=== PATIENT | male | born 1955 | race Caucasian/White ===

== ENCOUNTER → 2016-10-09 | Outpatient (CLI) | payer BC ==
[~2016-10-09] MED LIST: ASPCH81X PO; ATOR-24 PO; CEPH500C2 PO; DILT-203 PO; HYDR-5688 PO; HYDR12.55 PO; HYDR25TA4 PO; IRBE1TAB50 PO
[2016-10-09 12:53] LABS: BASO % 0.9 %; BASO ABS # 0.05 K/uL (0-0.2); COMPLETE YES; EOS % 1.6 %; HEMATOCRIT 41.9 % (42-52); IG% 0.2 %; LYMPH ABS # 1.95 K/uL (1.2-3.4); MEAN CELL VOLUME 94.4 fL (80-100); MEAN CORPUSCULAR HEMOGLOBIN 33.3 pg (25-34); MEAN CORPUSCULAR HGB CONC 35.3 g/dl (32-36); MEAN PLATELET VOLUME 10.9 fL (7.4-10.4); MONO % 7.7 %; NEUT % 55.6 %; PLATELET COUNT 201 K/uL (130-400); RED BLOOD COUNT 4.44 M/uL (4.7-6.1); WHITE BLOOD COUNT 5.74 K/uL (4.8-10.8)
[2016-10-09 13:07] LABS: ALKALINE PHOSPHATASE 49 U/L (45-117); ALT/SGPT 73 U/L (12-78); AST/SGOT 46 U/L (15-37); BLOOD UREA NITROGEN 16 mg/dl (7-18); BUN/CREATININE RATIO 16.9 (10-20); CALCIUM 8.9 mg/dl (8.5-10.1); CARBON DIOXIDE 28 mmol/L (21-32); CHLORIDE 103 mmol/L (98-107); CREATININE 0.92 mg/dl (0.60-1.40); GLUCOSE 106 mg/dl (70-99); HDL CHOLESTEROL 31 mg/dl; POTASSIUM 4.2 mmol/L (3.5-5.1); SODIUM 140 mmol/L (136-145)
[2016-10-09 13:12] LABS: CHOLESTEROL 154 mg/dl (0-200); LDL CHOLESTEROL CALCULATED 74 mg/dl; TRIGLYCERIDES 244 mg/dl (0-150); VERY LOW DENSITY LIPOPROT CALC 49 mg/dl
[2016-10-09 13:17] LABS: ESTIMATED AVERAGE GLUCOSE 105 mg/dl; HA1C FLAG Normal (Normal)
== END | disposition home or self-care (01) ==
LOC: C.LABBFT 10:54
PROVIDERS: ATTEND Internal Medicine
DX: E78.5 Hyperlipidemia, unspecified (principal); E66.9 Obesity, unspecified; R74.8 Abnormal levels of other serum enzymes; Z11.59 Encounter for screening for other viral diseases; Z12.5 Encounter for screening for malignant neoplasm of prostate; R73.01 Impaired fasting glucose

== ENCOUNTER → 2016-12-21 | Outpatient (CLI) | payer BC ==
[~2016-12-21] MED LIST changes: -DILT-203 PO; +DILT240C56 PO
--- NOTE | 2016-12-21 14:37 | DIAGNOSTIC IMAGING REPORT ---
ABDOMINAL WALL ULTRASOUND CLINICAL HISTORY: K42.9 Umbilical [id number] COMPARISON STUDY: No previous studies for comparison. FINDINGS: There is an incompletely reducible fat-containing umbilical hernia with a neck measuring approximately 2 cm. IMPRESSION: Moderate fat-containing umbilical hernia with a neck measuring approximately 2 cm. Electronically signed by: Yung Maher M.D. 12/21/2016 2:36 PM Dictated Date/Time: 12/21/2016 2:33 PM
== END | disposition home or self-care (01) ==
LOC: C.ULTR 14:16
PROVIDERS: ATTEND Surgery
DX: K42.9 Umbilical hernia without obstruction or gangrene (principal)

== ENCOUNTER → 2017-05-15 | Day surgery (SDC) | payer BC ==
[2017-04-27 15:29] VITALS: Ht 172.7 cm; Wt 109.1 kg
[2017-05-10 16:50] LABS: BASO % 1.1 %; BASO ABS # 0.08 K/uL (0-0.2); COMPLETE YES; EOS % 2.8 %; HEMATOCRIT 47.2 % (42-52); IG% 0.3 %; LYMPH % 33.6 %; LYMPH ABS # 2.42 K/uL (1.2-3.4); MEAN CELL VOLUME 96.3 fL (80-100); MEAN CORPUSCULAR HEMOGLOBIN 31.6 pg (25-34); MEAN CORPUSCULAR HGB CONC 32.8 g/dl (32-36); MEAN PLATELET VOLUME 10.7 fL (7.4-10.4); MONO % 9.4 %; NEUT % 52.8 %; PLATELET COUNT 253 K/uL (130-400); WHITE BLOOD COUNT 7.21 K/uL (4.8-10.8)
[2017-05-10 17:05] LABS: BUN/CREATININE RATIO 15.8 (10-20); CREATININE 0.94 mg/dl (0.60-1.40); POTASSIUM 4.2 mmol/L (3.5-5.1)
[~2017-05-15] VITALS: Ht 172.7 cm; Wt 109.1 kg
[~2017-05-15] MED LIST changes: -ATOR-24 PO; +ATROPINE SULFATE 0.1 MG/ML 5ML SYR IV PRN; +BUPIVACAINE 0.5 % 5 MG/1 ML MPF 30ML VIAL ONE; +CEFAZOLIN 2000 MG/60 ML D5W IV SCH; +DEXAMETHASONE SOD INJ 4 MG/ML VIAL ONE; +DILT-203 PO; -DILT240C56 PO; +FENTANYL CITRATE INJ 50 MCG/1 ML 2 ML VIAL IV PRN; +FENTANYL CITRATE INJ 50 MCG/1 ML 2 ML VIAL ONE; -HYDR12.55 PO; +HYDROCODONE/ACETAMOPHEN 5/325MG TAB PO PRN; +KETOROLAC TROMETHAMINE 30 MG/ML VIAL IV. PRN; +LABETALOL HCL IV 5 MG/ML 20ML IV PRN; +LACTATED RINGER'S 1000ML 1,000 ML IV SCH; +LIDOCAINE HCL 2% 2 ML VIAL (20MG/ML) ONE; +MIDAZOLAM HCL 1 MG/ML 2ML VIAL ONE; +ONDANSETRON INJ 2 MG/ML 2 ML VIAL IV PRN; +ONDANSETRON INJ 2 MG/ML 2 ML VIAL ONE; +PROPOFOL IV EMULSION 10 MG/ML 20 ML VIAL IV ONE; +SODIUM CHLORIDE 0.9% 1000ML 1,000 ML IV SCH
--- NOTE | 2017-05-15 09:02 | History & Physical Bridge - SC ---
H&P Re-Evaluation Bridge Note: I have examined the patient, reviewed the History & Physical and in the interval since the performance of the History & Physical I have noted the following changes of clinical significance: No changes noted
--- NOTE | 2017-05-15 09:05 | Discharge Instructions-SurgCtr ---
Discharge Instructions Date of Service May 15, 2017. Visit Reason for Visit: Umbilical Hernia Discharge Discharge Diagnosis / Problem: umbilical hernia Discharge Goals Goal(s): Decrease discomfort, Improve function, Improve disease control Activity Recommendations Activity Limitations: as noted below Lifting Limitations: no more than 25 pounds Exercise/Sports Limitations: until after follow-up appointment May Resume Sexual Activity: when tolerated Shower/Bathe: tomorrow Driving or Machine Use: resume 1 day after discharge SPECIAL CARE INSTRUCTIONS: * Cover incisions and change daily for comfort/drainage. * * Avoid constipation- may use Senokot S and Milk of magnesia twice daily as directed on the package * May use ibuprofen for pain as tolerated. * Expect some swelling and bruising. Call your doctor if: * Temperature above 101 degrees * Pain not relieved by pain medicine ordered * There is increased drainage or redness from any incision * You have any unanswered questions or concerns [phone]. FOLLOW UP VISIT: If not already scheduled, please call the office for a follow-up visit. for next week- some suture removal OFFICE PHONE NUMBER: Dr. Garcia Office Anesthesia . Post Anesthesia Instructions: If you have had General Anesthesia or IV Sedation: * Do not drive today. * Resume driving when surgeon permits. * Do not make important decisions or sign legal documents today. * Call surgeon for: 1. Temperature elevations greater than 101 degrees F. 2. Uncontrollable pain. 3. Excessive bleeding. 4. Persistent nausea and vomiting. 5. Medication intolerance (nausea, vomiting or rash). * For nausea and vomiting use only clear liquids such as: tea, soda, bouillon until nausea subsides, then gradually increase diet as tolerated. * If you have any concerns or questions, call your surgeon's office. If physician is unavailable and it is an emergency, call 911 or go to the nearest emergency room. . Diet Recommendations Home Diet: resume previous diet Pending Studies Studies pending at discharge: no Medical Emergencies . Who to Call and When: Medical Emergencies: If at any time you feel your situation is an emergency, please call 911 immediately. . Non-Emergent Contact Non-Emergency issues call your: Primary Care Provider, Surgeon . . "Provider Documentation" section prepared by Blayne Garcia. .
--- NOTE | 2017-05-15 10:09 | [facility] Operative Report ---
Operative Report Operative Date May 15, 2017. Pre-Operative Diagnosis Umbilical Hernia Post-Operative Diagnosis same Procedure(s) Performed Umbilical Hernia Open Repair Surgeon Dr. Svetlana Garcia Pilling Machine Operator Surgeon(s) June Garrett PA-C Estimated Blood Loss 5CC Findings 2 cm defect Specimens A. Umbilical Hernia Contents Anesthesia gen/ LMA Complication(s) None Disposition Recovery Room / PACU I attest to the content of the Intraoperative Record and any orders documented therein. Any exceptions are noted below.
[2017-05-15 11:40] VITALS: BP 143/88; PULSE 67; TEMP 36.5; O2SAT 95
--- NOTE | 2017-05-15 11:41 | Anesthesia Progress Nt - [facility] ---
Anesthesia Post Op Note Date & Time May 15, 2017 at 11:41 Vital Signs Pain Intensity: 2.0 Vital Signs Past 12 Hours Date Time Temp Pulse Resp B/P (MAP) Pulse Ox O2 Delivery O2 Flow Rate FiO2 05/15/17 11:15 67 16 153/83 (106) 94 Room Air 05/15/17 10:52 69 05/15/17 10:52 69 93 05/15/17 10:51 70 13 93 05/15/17 10:51 69 13 05/15/17 10:50 127/83 05/15/17 10:49 69 16 95 05/15/17 10:49 69 16 05/15/17 10:48 36.9 71 20 117/83 96 Room Air 05/15/17 10:46 117/83 05/15/17 10:44 70 14 05/15/17 10:44 69 14 93 05/15/17 10:43 71 13 05/15/17 10:43 71 13 93 05/15/17 10:42 71 18 05/15/17 10:42 71 18 93 05/15/17 10:41 133/89 05/15/17 10:39 71 15 97 05/15/17 10:39 71 15 05/15/17 10:38 66 11 97 05/15/17 10:38 67 11 05/15/17 10:37 70 14 05/15/17 10:37 70 14 96 05/15/17 10:36 70 13 96 05/15/17 10:36 70 13 05/15/17 10:35 130/87 05/15/17 10:33 68 12 96 05/15/17 10:33 68 12 05/15/17 10:32 69 21 97 05/15/17 10:32 69 21 05/15/17 10:31 137/91 05/15/17 10:27 67 13 05/15/17 10:27 67 13 95 05/15/17 10:26 145/97 05/15/17 10:25 71 21 05/15/17 10:25 21 05/15/17 10:20 66 21 05/15/17 10:20 66 21 129/95 94 05/15/17 10:15 36.4 76 16 128/91 96 Mask 10 05/15/17 10:15 78 05/15/17 10:15 78 128/91 05/15/17 07:58 36.9 71 18 162/102 (122) 96 Room Air Notes Mental Status: alert / awake / arousable, participated in evaluation Pt Amnestic to Procedure: Yes Nausea / Vomiting: adequately controlled Pain: adequately controlled Airway Patency, RR, SpO2: stable & adequate BP & HR: stable & adequate Hydration State: stable & adequate Anesthetic Complications: no major complications apparent
--- NOTE | 2017-05-15 11:51 | OPERATIVE REPORT ---
DATE OF OPERATION: 05/15/2017 NAME OF OPERATION: Open umbilical hernia repair. PREOPERATIVE DIAGNOSIS: Umbilical hernia. POSTOPERATIVE DIAGNOSIS: Same. STAFF SURGEON: Dr. Garcia. CAN LINE OPERATOR: June Garrett PA-C. ANESTHESIA: General LMA. PROCEDURE: The patient was brought in the operating room and placed on the operating table in supine position. His abdomen was prepped and draped in usual fashion. Using 0.5% plain Marcaine, skin and subcutaneous tissue were anesthetized. Incision made carrying dissection down. This was below the umbilicus, identifying a large hernia sac which was opened. It contained omentum. Part of the omentum was excised and ligated using 2-0 chromic catgut suture and then part of it was reduced. The defect was approximately 2 cm. It was then closed by reapproximating the fascia using interrupted 0 Ethibond suture. The tissue was irrigated and then deep tissue reapproximated using 2-0 plain catgut suture and then, the umbilicus was reattached to the subcutaneous tissue using 2-0 chromic catgut suture then the skin reapproximated using 4-0 nylon suture. The patient was transferred to recovery room in stable condition. I attest to the content of the Intraoperative Record and any orders documented therein. Any exception s are noted below.
== END | disposition home or self-care (01) ==
LOC: X.SURG 07:45
PROVIDERS: ATTEND Surgery
DX: K42.9 Umbilical hernia without obstruction or gangrene (principal); E78.5 Hyperlipidemia, unspecified; I10 Essential (primary) hypertension; E78.00 Pure hypercholesterolemia, unspecified; E66.9 Obesity, unspecified; Z89.029 Acquired absence of unspecified finger(s); Z90.89 Acquired absence of other organs; Z86.711 Personal history of pulmonary embolism; Z87.891 Personal history of nicotine dependence

== ENCOUNTER → 2017-11-14 | Outpatient (CLI) | payer OTHER ==
[~2017-11-14] MED LIST changes: -ATROPINE SULFATE 0.1 MG/ML 5ML SYR IV PRN; -BUPIVACAINE 0.5 % 5 MG/1 ML MPF 30ML VIAL ONE; -CEFAZOLIN 2000 MG/60 ML D5W IV SCH; -DEXAMETHASONE SOD INJ 4 MG/ML VIAL ONE; -FENTANYL CITRATE INJ 50 MCG/1 ML 2 ML VIAL IV PRN; -FENTANYL CITRATE INJ 50 MCG/1 ML 2 ML VIAL ONE; -HYDROCODONE/ACETAMOPHEN 5/325MG TAB PO PRN; -KETOROLAC TROMETHAMINE 30 MG/ML VIAL IV. PRN; -LABETALOL HCL IV 5 MG/ML 20ML IV PRN; -LACTATED RINGER'S 1000ML 1,000 ML IV SCH; -LIDOCAINE HCL 2% 2 ML VIAL (20MG/ML) ONE; -MIDAZOLAM HCL 1 MG/ML 2ML VIAL ONE; -ONDANSETRON INJ 2 MG/ML 2 ML VIAL IV PRN; -ONDANSETRON INJ 2 MG/ML 2 ML VIAL ONE; -PROPOFOL IV EMULSION 10 MG/ML 20 ML VIAL IV ONE; -SODIUM CHLORIDE 0.9% 1000ML 1,000 ML IV SCH
[2017-11-14 12:52] LABS: BASO % 1.5 %; BASO ABS # 0.09 K/uL (0-0.2); EOS % 4.1 %; EOS ABS # 0.25 K/uL (0-0.5); HEMATOCRIT 44.7 % (42-52); HEMOGLOBIN 15.9 g/dL (14.0-18.0); IG# 0.02 K/uL (0.00-0.02); LYMPH ABS # 1.84 K/uL (1.2-3.4); MEAN CELL VOLUME 94.9 fL (80-100); MEAN CORPUSCULAR HEMOGLOBIN 33.8 pg (25-34); MEAN CORPUSCULAR HGB CONC 35.6 g/dl (32-36); MEAN PLATELET VOLUME 10.9 fL (7.4-10.4); MONO % 12.2 %; MONO ABS # 0.75 K/uL (0.11-0.59); NEUT % 51.9 %; NEUT ABS # 3.19 K/uL (1.4-6.5); PLATELET COUNT 247 K/uL (130-400); RED CELL DISTRIBUTION WIDTH CV 12.7 % (11.5-14.5); RED CELL DISTRIBUTION WIDTH SD 43.7 fL (36.4-46.3); WHITE BLOOD COUNT 6.14 K/uL (4.8-10.8)
[2017-11-14 13:16] LABS: HEMOGLOBIN A1C 5.6 % (4.5-5.6)
[2017-11-14 13:28] LABS: ALBUMIN 3.8 gm/dl (3.4-5.0); ALT/SGPT 98 U/L (12-78); BLOOD UREA NITROGEN 15 mg/dl (7-18); CALCIUM 9.1 mg/dl (8.5-10.1); CARBON DIOXIDE 26 mmol/L (21-32); CHOLESTEROL 248 mg/dl (0-200); CREATININE 1.07 mg/dl (0.60-1.40); GLUCOSE 116 mg/dl (70-99); POTASSIUM 4.1 mmol/L (3.5-5.1); SODIUM 133 mmol/L (136-145)
[2017-11-14 13:32] LABS: ALKALINE PHOSPHATASE 50 U/L (45-117); AST/SGOT 65 U/L (15-37); LDL CHOLESTEROL CALCULATED 177 mg/dl; TOTAL PROTEIN 7.8 gm/dl (6.4-8.2)
== END | disposition home or self-care (01) ==
LOC: C.LABBFT 08:33
PROVIDERS: ATTEND Internal Medicine
DX: I10 Essential (primary) hypertension (principal); R73.01 Impaired fasting glucose; E78.5 Hyperlipidemia, unspecified; Z12.5 Encounter for screening for malignant neoplasm of prostate

== ENCOUNTER → 2017-11-27 | Outpatient (CLI) | payer OTHER ==
[~2017-11-27] MED LIST changes: -CEPH500C2 PO; -HYDR-5688 PO
--- NOTE | 2017-11-27 10:22 | DIAGNOSTIC IMAGING REPORT ---
(LIVER) ABDOMEN LIMITED CLINICAL HISTORY: 62 years-old Male presenting with R74.8 Elevated liver enzymes. TECHNIQUE: Real-time grayscale and limited color Doppler ultrasound imaging of the abdomen limited to the right upper quadrant was performed. COMPARISON: None. FINDINGS: Pancreas: Visualized portions of the pancreatic head and body normal. Liver: Moderately hyperechogenic parenchyma with partial obscuration of the right hemidiaphragm, likely indicating moderate steatosis. The liver measures 22.3 cm in maximal sagittal dimension. Multilobular anechoic lesion measuring 2.8 x 1.4 x 1.6 cm with a thin septation suggested, likely hepatic cyst. Main portal vein patent with normal directional flow. Biliary: No intrahepatic biliary ductal dilatation. Common bile duct measures up to 5 mm in diameter. Gallbladder: No evidence of gallstones, gallbladder wall thickening, gallbladder distention, or pericholecystic fluid or inflammatory change. 4 mm hyperechogenic focus, which is nonshadowing and nonmobile along the gallbladder wall suggests cholesterol polyp. Right kidney: Normal in appearance. No hydronephrosis. Ascites: None. Other: None. IMPRESSION: 1. No cholelithiasis or biliary ductal dilatation. 2. Hepatic steatosis. Correlate with liver function tests to exclude steatohepatitis as a cause for abdominal pain. Electronically signed by: Yonathan Sharma M.D. 11/27/2017 10:21 AM Dictated Date/Time: 11/27/2017 10:19 AM
== END | disposition home or self-care (01) ==
LOC: C.ULTR 09:53
PROVIDERS: ATTEND Internal Medicine
DX: R74.8 Abnormal levels of other serum enzymes (principal); K76.0 Fatty (change of) liver, not elsewhere classified

== ENCOUNTER 2017-12-16 17:26 | Emergency (ER) | payer OTHER ==
[~2017-12-16] VITALS: Ht 172.7 cm; Wt 113.3 kg
[2017-12-16 17:31] VITALS: TEMP 36.6; Ht 172.7 cm; Wt 113.3 kg
[2017-12-16] MEDS ORDERED: SODIUM CHLORIDE 0.9% 1000ML 1,000 ML IV STA ×2 (17:42→17:50)
[2017-12-16 17:47] VITALS: O2SAT 95
[2017-12-16] MEDS ORDERED: SPIR1TAB72 PO (17:57)
[2017-12-16] MEDS ORDERED: DILT1CAP15 PO (17:57)
--- NOTE | 2017-12-16 17:59 | EMERGENCY ROOM VISIT NOTE ---
History Report prepared by Judd: Iwona Light Under the Supervision of: Dr. Dangelo Cruz M.D. First contact with patient: 17:39 Chief Complaint: SEIZURE Stated Complaint: SEIZURE Nursing Triage Summary: pt arrives via EMS reports had 2 episodes today of feeling "dizzy " the first time pt states I was driving became dizzy so I pulled over and got out of the car walked around until I felt better and then continued driving. pt reports while at home spouse witnessed seizure like activity lasting approx 20-30 seconds pt reports both time lights sensitivity History of Present Illness The patient is a 62 year old male who presents to the Emergency Room with complaints of an episode of unresponsiveness occurring just prior to arrival. The patient reports this afternoon he was driving to go shopping when he became "light sensitive". He describes this as when "bright lights become emphasized". The patient reports he then he felt dizzy and pulled over. He then walked around until the dizziness went away. Later this evening, the patient was doing yard work and started to feel lightheaded. He states he walked over to his porch chair to sit down. Per , the patient has been fatigued all day. Per , when the patient sat down in the porch chair his eyes rolled to the back of his head, he became sweaty, shaky, pale and unresponsive. She reports the patient was breathing during the entire episode. She reports this episode lasted for about 15 minutes. She reports she called EMS about 2 minutes into the episode. When EMS arrived, the patient's states he was more responsive but not entirely himself. Per , presently the patient seems more himself besides being slightly confused and tired. The patient reports feeling more fatigued this week but he denies any cough, congestion, fever, or headaches. Presently, the patient reports he feels normal. The patient denies ever passing out before. He denies any history of seizures. He notes drinking a gin drink this afternoon. He was doing yard work outside before the episode of unresponsiveness occurred. The patient drinks two alcoholic beverages a day. The patient denies any drug use. Source of History: patient Onset: just prior to arrival Position: other (generalized) Quality: other (unresponsiveness) Timing: other (episode) Associated Symptoms: + LOC, + diaphoresis, + fatigue, No fevers, No headache , No cough Review of Systems See HPI for pertinent positives and negatives. A total of ten systems were reviewed and were otherwise negative. Family History Patient reports no known family medical history. Social History Smoking Status: Never Smoker Alcohol Use: occasionally Drug Use: none Marital Status: Housing Status: lives with significant other Occupation Status: employed Current/Historical Medications Scheduled Aspirin (Aspirin Chewable), 2 TABS PO QAM Diltiazem Hcl Coated Beads (Diltiazem Hcl Er), 360 MG PO DAILY Hctz/Spironolactone (Spironolactone/Hydrochlor 25-25 mg), 1 TAB PO DAILY Irbesartan (Irbesartan), 1 TAB PO QAM Allergies Coded Allergies: Niacin (Unverified Adverse Reaction, Severe, LEG PAIN, FATIGUE, 12/16/17) Statins (Unverified Adverse Reaction, Severe, LEG PAIN, 12/16/17) Physical Exam Vital Signs Date Time Temp Pulse Resp B/P (MAP) Pulse Ox O2 Delivery O2 Flow Rate FiO2 12/16/17 19:43 85 20 133/78 98 12/16/17 17:59 73 110/69 83 124/67 84 113/66 12/16/17 17:56 76 12/16/17 17:47 95 Room Air 12/16/17 17:31 36.6 79 20 126/71 96 Room Air Physical Exam GENERAL: Awake, alert, fatigued-appearing, in no distress HENT: Normocephalic, atraumatic. Oropharynx unremarkable. Dry cracked MM. EYES: Normal conjunctiva. Sclera non-icteric. NECK: Supple. No nuchal rigidity. FROM. No JVD. RESPIRATORY: Clear to auscultation. CARDIAC: Regular rate, normal rhythm. Extremities warm and well perfused. Pulses equal. ABDOMEN: Soft, non-distended. No tenderness to palpation. No rebound or guarding. No masses. RECTAL: Deferred. MUSCULOSKELETAL: Chest examination reveals no tenderness. The back is symmetrical on inspection without obvious abnormality. There is no CVA tenderness to palpation. No joint edema. LOWER EXTREMITIES: Calves are equal size bilaterally and non-tender. No edema. No discoloration. NEURO: Normal sensorium. No sensory or motor deficits noted. SKIN: No rash or jaundice noted. Medical Decision & Procedures ER Provider Diagnostic Interpretation: Radiology results as stated below per my review and radiologist interpretation: CHEST ONE VIEW PORTABLE FINDINGS: Cardiomediastinal and hilar silhouettes are within normal limits. No definite pneumothorax, pleural effusion, focal airspace consolidation or overt pulmonary edema. Ill-defined lucency of the left lung apex is favored to be artifact. Degenerative changes of the AC joints and spine with sigmoidal scoliosis partially imaged. IMPRESSION: No acute process. The above report was generated using voice recognition software. It may contain grammatical, syntax or spelling errors. Electronically signed by: Lambert Jung M.D. HEAD WITHOUT CONTRAST (CT) FINDINGS: No acute intracranial hemorrhage, midline shift, intracranial mass, hydrocephalus, territorial ischemia or abnormal extra-axial collection. Mild cerebral and moderate cerebellar atrophy with mild to moderate chronic microvascular ischemic changes, progressed from comparison study 10/02/2009. Cerebral vascular calcifications are seen at the level of the skull base. 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 The calvarium is intact. The paranasal sinuses, mastoid air cells, and middle ear cavities are clear. IMPRESSION: No acute intracranial abnormality. The above report was generated using voice recognition software. It may contain grammatical, syntax or spelling errors. Electronically signed by: Lambert Jung M.D. Laboratory Results 12/16/17 18:13 Red Blood Count 4.42, Mean Corpuscular Volume 93.7, Mean Corpuscular Hemoglobin 34.2, Mean Corpuscular Hemoglobin Concent 36.5, Mean Platelet Volume 9.3, Neutrophils (%) (Auto) 73.0, Lymphocytes (%) (Auto) 17.9, Monocytes (%) (Auto) 6.3, Eosinophils (%) (Auto) 1.5, Basophils (%) (Auto) 0.8, Neutrophils # (Auto) 6.14, Lymphocytes # (Auto) 1.51, Monocytes # (Auto) 0.53, Eosinophils # (Auto) 0.13, Basophils # (Auto) 0.07 12/16/17 18:13 Test 12/16/17 17:45 12/16/17 18:08 12/16/17 18:13 Urine Color YELLOW Urine Appearance CLEAR (CLEAR) Urine pH 5.0 (4.5-7.5) Urine Specific Arvin 1.022 (1.000-1.030) Urine Protein NEG (NEG) Urine Glucose (UA) NEG (NEG) Urine Ketones TRACE (NEG) Urine Occult Blood NEG (NEG) Urine Nitrite NEG (NEG) Urine Bilirubin NEG (NEG) Urine Urobilinogen NEG (NEG) Urine Leukocyte Esterase SMALL (NEG) Urine WBC (Auto) 5-10 /hpf (0-5) Urine RBC (Auto) 0-4 /hpf (0-4) Urine Hyaline Casts (Auto) 5-10 /lpf (0-5) Urine Epithelial Cells (Auto) 20-30 /lpf (0-5) Urine Bacteria (Auto) NEG (NEG) Urine Pathogenic Casts /lpf (0) Urine Opiates Screen NEG (NEG) Urine Methadone, Qualitative NEG (NEG) Urine Barbiturates NEG (NEG) Urine Phencyclidine (PCP) Level NEG (NEG) Ur Amphetamine/Methamphetamine NEG (NEG) MDMA (Ecstasy) Screen NEG (NEG) Urine Benzodiazepines Screen NEG (NEG) Urine Cocaine Metabolite NEG (NEG) Urine Marijuana (THC) NEG (NEG) Bedside Glucose 108 mg/dl (70-99) White Blood Count 8.42 K/uL (4.8-10.8) Red Blood Count 4.42 M/uL (4.7-6.1) Hemoglobin 15.1 g/dL (14.0-18.0) Hematocrit 41.4 % (42-52) Mean Corpuscular Volume 93.7 fL (80-100) Mean Corpuscular Hemoglobin 34.2 pg (25-34) Mean Corpuscular Hemoglobin Concent 36.5 g/dl (32-36) Platelet Count 240 K/uL (130-400) Mean Platelet Volume 9.3 fL (7.4-10.4) Neutrophils (%) (Auto) 73.0 % Lymphocytes (%) (Auto) 17.9 % Monocytes (%) (Auto) 6.3 % Eosinophils (%) (Auto) 1.5 % Basophils (%) (Auto) 0.8 % Neutrophils # (Auto) 6.14 K/uL (1.4-6.5) Lymphocytes # (Auto) 1.51 K/uL (1.2-3.4) Monocytes # (Auto) 0.53 K/uL (0.11-0.59) Eosinophils # (Auto) 0.13 K/uL (0-0.5) Basophils # (Auto) 0.07 K/uL (0-0.2) RDW Standard Deviation 41.6 fL (36.4-46.3) RDW Coefficient of Variation 12.2 % (11.5-14.5) Immature Granulocyte % (Auto) 0.5 % Immature Granulocyte # (Auto) 0.04 K/uL (0.00-0.02) Anion Gap 12.0 mmol/L (3-11) Est Creatinine Clear Calc Drug Dose 75.1 ml/min Estimated GFR () 72.0 Estimated GFR (Non- 62.1 BUN/Creatinine Ratio 18.1 (10-20) Calcium Level 8.6 mg/dl (8.5-10.1) Phosphorus Level 3.2 mg/dl (2.5-4.9) Magnesium Level 2.1 mg/dl (1.8-2.4) Total Bilirubin 0.3 mg/dl (0.2-1) Direct Bilirubin < 0.1 mg/dl (0-0.2) Aspartate Amino Transf (AST/SGOT) 76 U/L (15-37) Alanine Aminotransferase (ALT/SGPT) 95 U/L (12-78) Alkaline Phosphatase 47 U/L (45-117) Troponin I < 0.015 ng/ml (0-0.045) Total Protein 7.9 gm/dl (6.4-8.2) Albumin 3.7 gm/dl (3.4-5.0) Thyroid Stimulating Hormone (TSH) 3.330 uIu/ml (0.300-4.500) Ethyl Alcohol mg/dL 105.9 mg/dl (0-3) Medications Administered Medications (Trade) Dose Ordered Sig/Salud Route Start Time Stop Time Status Last Admin Dose Admin Sodium Chloride 1,000 ml @ 999 mls/hr Q1H1M STAT IV 12/16/17 17:42 12/16/17 18:42 DC 12/16/17 17:42 999 MLS/HR Sodium Chloride 1,000 ml @ 999 mls/hr Q1H1M STAT IV 12/16/17 17:50 12/16/17 18:50 DC 12/16/17 17:50 999 MLS/HR ECG Per My Interpretation Indication: syncope Rate (beats per minute): 77 Rhythm: normal sinus Findings: Q waves (Inferior), no acute ischemic change, other (normal axis) ED Course 1742: The patient was evaluated in room B6. A complete history and physical exam was performed. 1920: I updated the patient on his test results. He still reports he only drank one gin beverage today 1930: I reevaluated the patient. Discussed results and discharge instructions: He verbalized understanding and agreement. The patient is ready for discharge. Medical Decision I reviewed the patient's past medical history, medications, and the nursing notes as described above. Differential diagnosis: Etiologies such as vasovagal event, infection, hypoglycemia, electrolyte abnormalities, cardiac sources, intracerebral event, toxicologic, neurologic, as well as others were entertained. The patient is a 62-year-old gentleman who presents emergency department after a syncopal episode with question seizure activity per hpi. Of note the patient reports feeling fatigue over the past week and was out working in the yard today. The patient does report having 1-2 drinks of gin every day but no more. On arrival the patient is fatigued appearing but no acute distress, afebrile stable vital signs. Patient appears clinically dry. Neuro intact. No evidence of tongue biting. Labs are notable for alcohol of 100. Bicarb of 21 and BUN of 22 consistent with mild dehydration. CT head unremarkable. EKG unremarkable. Patient feeling improved after IV fluid hydration. I did discuss the findings with the patient and his . Patient continues to report only having 1 drink of gin today. However I did explain how his lab results suggest that he has had at least 5 drinks. I explained the risks of heavy daily alcohol drinking. He denies any history of withdrawal symptoms reports he has gone several days without drinking alcohol without difficulty. I did explain however if he does experience withdrawal there are risks of true seizures if he indeed is abusing alcohol. Plan for PCP follow-up. Findings and plan for follow-up reviewed with patient. Patient agreeable and d/c'd per discharge instructions. Medication Reconcilliation Current Medication List: was personally reviewed by me Blood Pressure Screening Patient's blood pressure: Normal blood pressure Impression Primary Impression: Syncope Additional Impressions: Alcohol intoxication Dehydration Scribe Attestation The scribe's documentation has been prepared under my direction and personally reviewed by me in its entirety. I confirm that the note above accurately reflects all work, treatment, procedures, and medical decision making performed by me. Departure Information Dispostion Home / Self-Care Referrals Krueger, Christopher E.,M.D. (PCP) Forms HOME CARE DOCUMENTATION FORM, IMPORTANT VISIT INFORMATION Patient Instructions Addiction Alcohol Signs, ED Alcohol Intoxication, ED Hypotension Orthostatic, ED Near Syncope [place]kn, ED Syncope Vasovagal, [facility], Syncope Causes Additional Instructions Please follow up with your primary care physician in the next 1-3 days for re- evaluation. Your symptoms are most likely related to passing out due to dehydration in the setting of alcohol intoxication. Otherwise, your exam, EKG, chest xray, lab results, and CT scan did not show signs of an emergent condition at this time. You should not abuse alcohol if you are drinking heavily daily. Seek help if you need assistance. Drink plenty of fluids to ensure hydration. Return to the emergency department for worsening symptoms as described in the accompanying instructions. Problem Qualifiers
--- NOTE | 2017-12-16 18:14 | DIAGNOSTIC IMAGING REPORT ---
CHEST ONE VIEW PORTABLE HISTORY: 62 years-old Male EVALUATE ALTERED MENTAL STATUS/WEAKNESS acute weakness with altered mental status COMPARISON: None available TECHNIQUE: Portable AP view of the chest FINDINGS: Cardiomediastinal and hilar silhouettes are within normal limits. No definite pneumothorax, pleural effusion, focal airspace consolidation or overt pulmonary edema. Ill-defined lucency of the left lung apex is favored to be artifact. Degenerative changes of the AC joints and spine with sigmoidal scoliosis partially imaged. IMPRESSION: No acute process. The above report was generated using voice recognition software. It may contain grammatical, syntax or spelling errors. Electronically signed by: Lambert Jung M.D. 12/16/2017 6:13 PM Dictated Date/Time: 12/16/2017 6:09 PM
[2017-12-16 18:27] LABS: BASO % 0.8 %; BASO ABS # 0.07 K/uL (0-0.2); EOS % 1.5 %; EOS ABS # 0.13 K/uL (0-0.5); HEMATOCRIT 41.4 % (42-52); HEMOGLOBIN 15.1 g/dL (14.0-18.0); IG# 0.04 K/uL (0.00-0.02); LYMPH % 17.9 %; LYMPH ABS # 1.51 K/uL (1.2-3.4); MEAN CELL VOLUME 93.7 fL (80-100); MEAN CORPUSCULAR HEMOGLOBIN 34.2 pg (25-34); MEAN CORPUSCULAR HGB CONC 36.5 g/dl (32-36); MEAN PLATELET VOLUME 9.3 fL (7.4-10.4); MONO % 6.3 %; MONO ABS # 0.53 K/uL (0.11-0.59); NEUT ABS # 6.14 K/uL (1.4-6.5); PLATELET COUNT 240 K/uL (130-400); RED CELL DISTRIBUTION WIDTH CV 12.2 % (11.5-14.5); RED CELL DISTRIBUTION WIDTH SD 41.6 fL (36.4-46.3); WHITE BLOOD COUNT 8.42 K/uL (4.8-10.8)
--- NOTE | 2017-12-16 18:31 | DIAGNOSTIC IMAGING REPORT ---
HEAD WITHOUT CONTRAST (CT) CLINICAL HISTORY: 62 years-old Male with EVALUATE ALTERED MENTAL STATUS/WEAKNESS. Acutely altered mental status with weakness TECHNIQUE: Multiple axial CT images of the head were obtained without contrast. A dose lowering technique was utilized adhering to the principles of ALARA. CT DOSE: 614.27 mGy.cm COMPARISON: Head CT 10/02/2009. FINDINGS: No acute intracranial hemorrhage, midline shift, intracranial mass, hydrocephalus, territorial ischemia or abnormal extra-axial collection. Mild cerebral and moderate cerebellar atrophy with mild to moderate chronic microvascular ischemic changes, progressed from comparison study 10/02/2009. Cerebral vascular calcifications are seen at the level of the skull base. 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 The calvarium is intact. The paranasal sinuses, mastoid air cells, and middle ear cavities are clear. IMPRESSION: No acute intracranial abnormality. The above report was generated using voice recognition software. It may contain grammatical, syntax or spelling errors. Electronically signed by: Lambert Jung M.D. 12/16/2017 6:30 PM Dictated Date/Time: 12/16/2017 6:27 PM
[2017-12-16 18:44] LABS: ALBUMIN 3.7 gm/dl (3.4-5.0); ALT/SGPT 95 U/L (12-78); AST/SGOT 76 U/L (15-37); BLOOD UREA NITROGEN 22 mg/dl (7-18); CALCIUM 8.6 mg/dl (8.5-10.1); CARBON DIOXIDE 21 mmol/L (21-32); CREATININE 1.23 mg/dl (0.60-1.40); GLUCOSE 104 mg/dl (70-99); SODIUM 132 mmol/L (136-145)
[2017-12-16 18:55] LABS: ALKALINE PHOSPHATASE 47 U/L (45-117); PHOSPHORUS 3.2 mg/dl (2.5-4.9); TOTAL PROTEIN 7.9 gm/dl (6.4-8.2)
[2017-12-16 19:43] VITALS: BP 133/78; PULSE 85; O2SAT 98
== END 2017-12-16 19:44 | disposition home or self-care (01) ==
LOC: EDBD 17:26 → C.EDB 17:27
DX: R55 Syncope and collapse (principal); E86.0 Dehydration; F10.120 Alcohol abuse with intoxication, uncomplicated